=== PATIENT | female | born 1995 | race African-American/Black ===

== ENCOUNTER → 2021-04-23 | Emergency (ER) | payer OTHER ==
[2021-04-23 01:06] VITALS: BP 175/77; PULSE 88; TEMP 98.3; BMI 26.4
== END | disposition home or self-care (01) ==
LOC: JER 00:29
DX: S16.1XXA Strain of muscle, fascia and tendon at neck level, initial encounter (principal); V49.50XA Passenger injured in collision with unspecified motor vehicles in traffic accident, initial encounter
CPT/HCPCS: 70450-TC; 72125-TC; 73030-TC-RT-FY; 99284-25